=== PATIENT | male | born 1990 | race Two or more races ===

== ENCOUNTER 2021-11-07 21:45 | Emergency (ER) | payer OTHER ==
[~2021-11-07] VITALS: Ht 170.2 cm; Wt 90.9 kg
[2021-11-08 00:16] VITALS: BP 135/93
[2021-11-08] MEDS ORDERED: AMOX875T3 PO (00:30)
[2021-11-08] MEDS ORDERED: PRED15SO26 PO (00:30)
== END 2021-11-08 00:39 | disposition home or self-care (01) ==
LOC: ER 21:45
DX: J02.9 Acute pharyngitis, unspecified (principal)

== ENCOUNTER 2022-04-11 20:04 | Emergency (ER) | payer OTHER ==
[~2022-04-11 20:04] MED LIST: AMOX875T3 PO; PRED15SO26 PO
== END 2022-04-11 23:00 | disposition left against medical advice (07) ==
LOC: ER 20:04
DX: J45.909 Unspecified asthma, uncomplicated (principal); Z53.21 Procedure and treatment not carried out due to patient leaving prior to being seen by health care provider